=== PATIENT | female | born 1975 | race Caucasian/White ===

== ENCOUNTER → 2019-07-22 | Outpatient (CLI) | payer OTHER ==
[~2019-07-22] VITALS: Ht 162.6 cm; Wt 101.2 kg
[~2019-07-22] MED LIST: CALCIUM 600-D 61 TAB PO; FLINTSTONES COM1 CT1 PO; TYLENOL 500MG500 MG PO; ULTRAM 50MG TAB50 MG PO; VITAMIN B12 1541 TAB PO; ZOFRAN 4MG T4 MG/TAB PO
[2019-07-22 15:41] VITALS: BP 164/76; PULSE 92
== END ==
LOC: LIGHT 08:09
DX: Z68.38 Body mass index [BMI] 38.0-38.9, adult (principal); E78.00 Pure hypercholesterolemia, unspecified
CPT/HCPCS: G0463

== ENCOUNTER 2019-07-24 12:16 | Inpatient (IN) | payer OTHER ==
[~2019-07-24] VITALS: Ht 162.6 cm; Wt 97.1 kg
[2019-08-07] VITALS (13 sets, daily range): BP systolic 113–156; BP diastolic 63–84; PULSE 87–109; TEMP 97.9–98.8
[2019-08-07] MEDS ORDERED: TYLENOL 500MG500 MG PO (05:59)
[2019-08-08 03:50] VITALS: BP 148/77; PULSE 87; TEMP 99
[2019-08-08 08:05] VITALS: BP 144/80; PULSE 93; TEMP 98.2
[2019-08-08 12:34] VITALS: BP 152/82; PULSE 90; TEMP 98.6
[2019-08-08] MEDS ORDERED: ULTRAM 50MG TAB50 MG PO (12:45)
[2019-08-08] MEDS ORDERED: ZOFRAN 4MG T4 MG/TAB PO (12:45)
== END 2019-08-08 14:45 | disposition home or self-care (01) | DRG 621 ==
LOC: INPTSU 08-07 05:27 → SURG 08-07 07:30
PROVIDERS: ADMIT Surgery
PROC: 0DB64Z3 Excision of Stomach, Percutaneous Endoscopic Approach, Vertical (ICD-10-PCS; principal; 2019-08-08)
DX: E66.01 Morbid (severe) obesity due to excess calories (principal); E78.00 Pure hypercholesterolemia, unspecified; F41.9 Anxiety disorder, unspecified; G47.33 Obstructive sleep apnea (adult) (pediatric); Z68.38 Body mass index [BMI] 38.0-38.9, adult; Z98.51 Tubal ligation status
CPT/HCPCS: J0690; J1100; J1170; J1885; J2405; J2550; J2704; J3010; J7120

== ENCOUNTER → 2019-11-25 | Outpatient (CLI) | payer OTHER ==
[~2019-11-25] VITALS: Ht 162.6 cm; Wt 79.4 kg
[2019-11-25 15:26] VITALS: BP 94/58; PULSE 80
== END ==
LOC: LIGHT 09-16 11:33
DX: E66.8 Other obesity (principal); Z68.30 Body mass index [BMI] 30.0-30.9, adult; Z98.84 Bariatric surgery status
CPT/HCPCS: G0463

== ENCOUNTER → 2020-04-27 | Outpatient (CLI) | payer OTHER ==
[~2020-04-27] VITALS: Ht 162.6 cm; Wt 64.2 kg
[2020-04-27 13:39] VITALS: BP 108/58; PULSE 64
== END ==
LOC: LIGHT 02-03 13:51
DX: E66.8 Other obesity (principal); Z68.24 Body mass index [BMI] 24.0-24.9, adult; Z98.84 Bariatric surgery status
CPT/HCPCS: G0463